=== PATIENT | male | born 1995 | race Two or more races ===

== ENCOUNTER 2020-11-14 16:35 | Inpatient (IN) | payer OTHER ==
[~2020-11-14] VITALS: Ht 172.7 cm; Wt 81.8 kg
[2020-11-14] MEDS ORDERED: IV NORMAL SALINE 1000ML BAG 1,000 ML IV ONE (17:00)
[2020-11-14] MEDS ORDERED: fentaNYL PF VIAL 100 MCG/2 ML VIAL IVP ONE ×2 (17:00→17:15)
[2020-11-14] MEDS ORDERED: ONDANSETRON PF 4 MG/2 ML VIAL. IVP ONE (17:00)
--- NOTE | 2020-11-14 17:00 | PHYS DOC ---
Past Medical History Past Medical History: No Pertinent History Past Surgical History: No Surgical History Smoking Status: Current Some Day Smoker Alcohol Use: Rarely General Adult EDM: Chief Complaint: TRAUMA ALERT HPI: HPI: Patient is a 25 year old who was brought here by EMS from a baseball field due to left leg injury. Patient said another player collided with him on the field, injured his left leg. Patient's hydraulic strainer operator placed a inflatable splint on his left leg, EMS was called to take him here for evaluation. EMS gave patient ketamine on route for pain control. Patient denies any other injury, no headache, no neck pain, no back pain, no hip pain, no abdominal pain, no upper extremity pain. Review of Systems: Review of Systems: Constitutional: Denies fever or chills. [] Eyes: Denies change in visual acuity. [] HENT: Denies nasal congestion or sore throat. [] Respiratory: Denies cough or shortness of breath. [] Cardiovascular: Denies chest pain or edema. [] GI: Denies abdominal pain, nausea, vomiting, bloody stools or diarrhea. [] : Denies dysuria. [] Musculoskeletal: Denies back pain , positive for left leg pain. Integument: Denies rash. [] Neurologic: Denies headache, focal weakness or sensory changes. [] Endocrine: Denies polyuria or polydipsia. [] Lymphatic: Denies swollen glands. [] Psychiatric: Denies depression or anxiety. [] Heart Score: C/O Chest Pain: N/A Risk Factors: Risk Factors: DM, Current or recent (<one month) smoker, HTN, HLP, family history of CAD, obesity. Risk Scores: Score 0 - 3: 2.5% MACE over next 6 weeks - Discharge Home Score 4 - 6: 20.3% MACE over next 6 weeks - Admit for Clinical Observation Score 7 - 10: 72.7% MACE over next 6 weeks - Early Invasive Strategies Current Medications: Current Medications Medications (Trade) Dose Ordered Sig/Tera Start Time Stop Time Status Last Admin Dose Admin Fentanyl Citrate (Fentanyl 2ml Vial) 50 mcg 1X ONCE 11/14/20 17:00 11/14/20 17:01 Ondansetron HCl (Zofran) 4 mg 1X ONCE 11/14/20 17:00 11/14/20 17:01 Sodium Chloride 1,000 ml @ 1,000 mls/hr 1X ONCE 11/14/20 17:00 11/14/20 17:59 Allergies: Allergies: Allergies Coded Allergies Type Severity Reaction Last Updated Verified No Known Drug Allergies 11/14/20 No Physical Exam: PE: Constitutional: Well developed, well nourished, no acute distress, non-toxic appearance. [] HENT: Normocephalic, atraumatic, bilateral external ears normal, oropharynx moist, no oral exudates, nose normal. [] Eyes: PERRLA, EOMI, conjunctiva normal, no discharge. [] Neck: Normal range of motion, no tenderness, supple, no stridor. [] Cardiovascular:Heart rate regular rhythm, no murmur [] Lungs & Thorax: Bilateral breath sounds clear to auscultation [] Abdomen: Bowel sounds normal, soft, no tenderness, no masses, no pulsatile masses. [] Skin: Warm, dry, no erythema, no rash. [] Back: No tenderness, no CVA tenderness. [] Extremities: Left leg tender to palpation with minimal swelling in the mid part of his left leg. There is no evidence of compartment syndrome, no open wound, there is strong dorsalis pedis pulse. Neurologic: Alert and oriented X 3, normal motor function, normal sensory function, no focal deficits noted. [] Psychologic: Affect normal, judgement normal, mood normal. [] Current Patient Data: Vital Signs: Vital Signs Date Time Temp Pulse Resp B/P (MAP) Pulse Ox O2 Delivery O2 Flow Rate FiO2 11/14/20 16:44 98.2 71 18 115/55 (75) 100 Room Air 98.2 EKG: EKG: [] Radiology/Procedures: Radiology/Procedures: [][facility] [address] [place] [address] IMAGING REPORT Signed PATIENT: KATHI TERESA ACCOUNT: [id number] : 1995 LOCATION: ER AGE: 25 SEX: M EXAM STATUS: REG ER ORD. PHYSICIAN: FRANCO LOWE DO REASON: left leg injured PROCEDURE: TIBIA FIBULA LEFT 2 views left tibia-fibula dated 11/14/2020. No comparison available. CLINICAL INDICATION: Pain after injury. FINDINGS: 2 views left tibia fibula show comminuted nondisplaced fracture of the distal one third shaft tibia. There is also 2 separate nondisplaced transverse fracture lines of the midshaft and distal one third shaft of fibula. No apparent abnormality at the knee joint. Impression: Fractures of the tibia and fibular shafts, not significantly displaced. Electronically signed by: Amilcar Ashton MD (11/14/2020 5:02 PM) [id number] DICTATED and SIGNED BY: AMILCAR ASHTON MD DATE: 11/14/20 [id number] Splinting Procedure: POSTERIOR LONG LEG WITH STIR UP Indication: LEFT TIB/FIB FRACTURE Splint was done by: PATRICE AND PHILLY Method: POSTERIOR LONG LEG WITH STIR UP. Material: ORTHOGLASS MATERIAL Post Splinting exam was done by this physician, capillary refill of the affected extremity was less than 2 seconds, no focal neurovascular deficit. No evidence of compartment syndrome. Complication : none, patient tolerated procedure well. Course & Med Decision Making: Course & Med Decision Making Pertinent Labs and Imaging studies reviewed. (See chart for details) Patient is a 25-year-old male who sustained a closed fracture tib-fib left leg. A posterior long-leg splint with stirrup was applied on left lower extremity by PATRICE and PHILLY. Patient was evaluated in the ED by the trauma surgeon Dr. Velasquez and the orthopedic surgeon Dr. Baker. Patient will be admitted to the hospitalist service Dr. Gramajo. Dr. Baker indicated that patient can be managed with splinting for now, no surgery needed at this time. Patient was still in a lot of pain, will admit him for pain control Dragon Disclaimer: Daniel Disclaimer: This electronic medical record was generated, in whole or in part, using a voice recognition dictation system. Departure Departure Impression: Primary Impression: Closed fracture of left tibia and fibula Disposition: ADMITTED INPT THIS HOSP Admitting Physician: SANAZ (Dr. Gramajo) Condition: STABLE FRANCO LOWE DO Nov 14, 2020 17:00
--- NOTE | 2020-11-14 17:04 | RAD ---
2 views left tibia-fibula dated 11/14/2020. No comparison available. CLINICAL INDICATION: Pain after injury. FINDINGS: 2 views left tibia fibula show comminuted nondisplaced fracture of the distal one third shaft tibia. There is also 2 separate nondisplaced transverse fracture lines of the midshaft and distal one third shaft of fibula. No apparent abnormality at the knee joint. Impression: Fractures of the tibia and fibular shafts, not significantly displaced. Electronically signed by: Amilcar Ashton MD (11/14/2020 5:02 PM) [id number]
[2020-11-14 17:05] LABS: BASO % 0 % (0-3); EOS % 0 % (0-3); HEMATOCRIT 41.4 % (39.0-53.0); HEMOGLOBIN 14.5 g/dL (13.0-17.5); LYMPH % 10 % (24-48); MEAN CORPUSCULAR HEMOGLOBIN 30 pg (25-35); MEAN CORPUSCULAR HGB CONC 35 g/dL (31-37); MEAN CORPUSCULAR VOLUME 87 fL (79-100); MONO # 0.6 x10^3/uL (0.0-1.1); MONO % 6 % (0-9); NEUT # 8.7 x10^3/uL (1.8-7.7); NEUT % 84 % (31-73); PLATELET COUNT 277 x10^3/uL (140-400); RED BLOOD COUNT 4.77 x10^6/uL (4.30-5.70); RED CELL DISTRIBUTION WIDTH 12.9 % (11.5-14.5); WHITE BLOOD COUNT 10.4 x10^3/uL (4.0-11.0)
[2020-11-14] MEDS ORDERED: fentaNYL PF VIAL 100 MCG/2 ML VIAL IV PRN (17:15)
[2020-11-14] MEDS ORDERED: IV NORMAL SALINE 1000ML BAG 1,000 ML IV SCH (17:15)
[2020-11-14] MEDS ORDERED: ONDANSETRON PF 4 MG/2 ML VIAL. IV PRN (17:15)
[2020-11-14 17:16] LABS: CALCIUM 9.3 mg/dL (8.5-10.1); CREATININE 1.1 mg/dL (0.7-1.3); POTASSIUM 4.4 mmol/L (3.5-5.1)
[2020-11-14 17:22] LABS: ALBUMIN 4.1 g/dL (3.4-5.0); ALBUMIN/GLOBULIN RATIO 1.2 (1.0-1.7); TOTAL BILIRUBIN 0.9 mg/dL (0.2-1.0); TOTAL PROTEIN 7.4 g/dL (6.4-8.2)
[2020-11-14 18:15] VITALS: BP 148/78
[2020-11-14] MEDS ORDERED: MORPHINE SULFATE 2 MG/ML VIAL. IV PRN (19:00)
--- NOTE | 2020-11-14 19:07 | NUR ---
Patient arrived around 1810 from the ED. LLE is covered in a splint and agustina wrap. Pain rated at an 8 upon admission and patient is alert but loopy from his pain medications. 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 The couch and assistant hvac mechanic couch are at bedside. Patient is from [place] and his primary language is [place]ibian but he speaks Canadian very well. IV in right AC not working properly so it was discontinued. IV infusing properly in his left AC. Oncoming shift notified and will continue to monitor patient.
--- NOTE | 2020-11-14 19:29 | PDOC1 ---
History and Physical Date of Service: DOS: DATE: 11/14/20 TIME: 19:27 Chief Complaint: Chief Complain: Trauma to left lower extremity History of Present Illness: HPI: 25 year old who was brought here by EMS from a baseball field due to left leg injury. Patient said another player collided with him on the field, injured his left leg. Patient's salesforce trainer placed a inflatable splint on his left leg, EMS was called to take him here for evaluation. EMS gave patient ketamine on route for pain control. Patient denies any other injury, no headache, no neck pain, no back pain, no hip pain, no abdominal pain, no upper extremity pain. Past Medical/Surgical History: PMH/PSH: Past Medical History: No Pertinent History Past Surgical History: No Surgical History Allergies: Allergies: Coded Allergies: No Known Drug Allergies (Unverified , 11/14/20) Family History: Family History: Reviewed with no relevant findings Social History: Social History: Smoking Status: Current Some Day Smoker Alcohol Use: Rarely Current Medications: Current Medications Current Medications Fentanyl Citrate (Fentanyl 2ml Vial) 50 mcg 1X ONCE IVP Last administered on 11/14/20at 16:57; Start 11/14/20 at 17:00; Stop 11/14/20 at 17:01; Status DC Ondansetron HCl (Zofran) 4 mg 1X ONCE IVP Last administered on 11/14/20at 16:57; Start 11/14/20 at 17:00; Stop 11/14/20 at 17:01; Status DC Sodium Chloride 1,000 ml @ 1,000 mls/hr 1X ONCE IV Last administered on 11/14/20at 16:56; Start 11/14/20 at 17:00; Stop 11/14/20 at 17:59; Status DC Ondansetron HCl (Zofran) 4 mg PRN Q8HRS PRN IV NAUSEA/VOMITING; Start 11/14/20 at 17:15; Stop 11/15/20 at 17:14 Fentanyl Citrate (Fentanyl 2ml Vial) 50 mcg PRN Q1HR PRN IV PAIN Last administered on 11/14/20at 18:28; Start 11/14/20 at 17:15; Stop 11/14/20 at 19:01; Status DC Sodium Chloride 1,000 ml @ 100 mls/hr Q10H IV ; Start 11/14/20 at 17:15 Fentanyl Citrate (Fentanyl 2ml Vial) 50 mcg 1X ONCE IVP Last administered on 11/14/20at 17:15; Start 11/14/20 at 17:15; Stop 11/14/20 at 17:16; Status DC Morphine Sulfate (Morphine Sulfate) 1 mg PRN Q2HR PRN IV PAIN; Start 11/14/20 at 19:00 ROS: Review of Systems Review of System REVIEW OF SYSTEMS: GENERAL: Denies weakness SKIN: No bruising, hair changes or rashes. EYES: No blurred, double or loss of vision. NOSE AND THROAT: No history of nosebleeds, hoarseness or sore throat. HEART: No history of palpitations, chest pain or shortness of breath on exertion. LUNGS: Denies cough, hemoptysis, wheezing or shortness of breath. GASTROINTESTINAL: Denies changes in appetite, nausea, vomiting, diarrhea or constipation. GENITOURINARY: No history of frequency, urgency, hesitancy or nocturia. NEUROLOGIC: Denies history of numbness, tingling, or tremor. PSYCHIATRIC: No history of panic, anxiety or depression. ENDOCRINE: No history of heat or cold intolerance, polyuria or polydipsia. EXTREMITIES: Denies joint pain, pain on walking or stiffness. Physical Exam: Vital Signs: Vital Signs Date Time Temp Pulse Resp B/P (MAP) Pulse Ox O2 Delivery O2 Flow Rate FiO2 11/14/20 18:58 100 Room Air 11/14/20 18:15 98.6 78 20 148/78 (101) 98.6 Physcial Exam: GEN: No apparent distress. Alert and oriented HEENT: Normal cephalic, atraumatic, external auditory canals are patent EYES: Extraocular muscles are intact, pupil are equally round and reactive to light and accommodation MUSCULOSKELETAL: Well developed , well nourished, good range of motion ENDOCRINE: No thyromegaly was palpated LYMPHATICS: No cervical chain or axillary nodes were noted HEMATOPOIETIC: No bruising NECK: Supple, no JVD, no thyromegaly was noted LUNGS: Clear to auscultation in all lung melton without rhonchi or wheezing HEART: RRR, S!, S2 present. Peripheral pulses intact, no obvious murmurs noted ABDOMEN: Soft, nontender. Positive bowel sounds, no organomegaly, normal bowel sounds EXTREMITIES: Without clubbing, cyanosis, or edema. Pedal pulses intact. Negative Homans sign NEUROLOGIC: Normal speech and tone. A&O x 3, moves all extremities, no obvious focal deficits PSYCHIATRIC: Normal affect, normal mood. Stable SKIN: No ulcerations or rashes, good skin turgor, no jaundice VASCULAR: Good capillary refill, neurovascular bundle appears to be intact Labs: Labs: Laboratory Tests Test 11/14/20 16:45 11/14/20 16:55 SARS-CoV-2 Antigen (Rapid) Negative (NEGATIVE) White Blood Count 10.4 x10^3/uL (4.0-11.0) Red Blood Count 4.77 x10^6/uL (4.30-5.70) Hemoglobin 14.5 g/dL (13.0-17.5) Hematocrit 41.4 % (39.0-53.0) Mean Corpuscular Volume 87 fL (79-100) Mean Corpuscular Hemoglobin 30 pg (25-35) Mean Corpuscular Hemoglobin Concent 35 g/dL (31-37) Red Cell Distribution Width 12.9 % (11.5-14.5) Platelet Count 277 x10^3/uL (140-400) Neutrophils (%) (Auto) 84 % (31-73) Lymphocytes (%) (Auto) 10 % (24-48) Monocytes (%) (Auto) 6 % (0-9) Eosinophils (%) (Auto) 0 % (0-3) Basophils (%) (Auto) 0 % (0-3) Neutrophils # (Auto) 8.7 x10^3/uL (1.8-7.7) Lymphocytes # (Auto) 1.0 x10^3/uL (1.0-4.8) Monocytes # (Auto) 0.6 x10^3/uL (0.0-1.1) Eosinophils # (Auto) 0.0 x10^3/uL (0.0-0.7) Basophils # (Auto) 0.0 x10^3/uL (0.0-0.2) Sodium Level 138 mmol/L (136-145) Potassium Level 4.4 mmol/L (3.5-5.1) Chloride Level 105 mmol/L (98-107) Carbon Dioxide Level 22 mmol/L (21-32) Anion Gap 11 (6-14) Blood Urea Nitrogen 16 mg/dL (8-26) Creatinine 1.1 mg/dL (0.7-1.3) Estimated GFR (Cockcroft-Gault) 83.0 BUN/Creatinine Ratio 15 (6-20) Glucose Level 99 mg/dL (70-99) Calcium Level 9.3 mg/dL (8.5-10.1) Total Bilirubin 0.9 mg/dL (0.2-1.0) Aspartate Amino Transf (AST/SGOT) 26 U/L (15-37) Alanine Aminotransferase (ALT/SGPT) 32 U/L (16-63) Alkaline Phosphatase 96 U/L (46-116) Total Protein 7.4 g/dL (6.4-8.2) Albumin 4.1 g/dL (3.4-5.0) Albumin/Globulin Ratio 1.2 (1.0-1.7) Laboratory Tests Test 11/14/20 16:45 11/14/20 16:55 SARS-CoV-2 Antigen (Rapid) Negative (NEGATIVE) White Blood Count 10.4 x10^3/uL (4.0-11.0) Red Blood Count 4.77 x10^6/uL (4.30-5.70) Hemoglobin 14.5 g/dL (13.0-17.5) Hematocrit 41.4 % (39.0-53.0) Mean Corpuscular Volume 87 fL (79-100) Mean Corpuscular Hemoglobin 30 pg (25-35) Mean Corpuscular Hemoglobin Concent 35 g/dL (31-37) Red Cell Distribution Width 12.9 % (11.5-14.5) Platelet Count 277 x10^3/uL (140-400) Neutrophils (%) (Auto) 84 % (31-73) Lymphocytes (%) (Auto) 10 % (24-48) Monocytes (%) (Auto) 6 % (0-9) Eosinophils (%) (Auto) 0 % (0-3) Basophils (%) (Auto) 0 % (0-3) Neutrophils # (Auto) 8.7 x10^3/uL (1.8-7.7) Lymphocytes # (Auto) 1.0 x10^3/uL (1.0-4.8) Monocytes # (Auto) 0.6 x10^3/uL (0.0-1.1) Eosinophils # (Auto) 0.0 x10^3/uL (0.0-0.7) Basophils # (Auto) 0.0 x10^3/uL (0.0-0.2) Sodium Level 138 mmol/L (136-145) Potassium Level 4.4 mmol/L (3.5-5.1) Chloride Level 105 mmol/L (98-107) Carbon Dioxide Level 22 mmol/L (21-32) Anion Gap 11 (6-14) Blood Urea Nitrogen 16 mg/dL (8-26) Creatinine 1.1 mg/dL (0.7-1.3) Estimated GFR (Cockcroft-Gault) 83.0 BUN/Creatinine Ratio 15 (6-20) Glucose Level 99 mg/dL (70-99) Calcium Level 9.3 mg/dL (8.5-10.1) Total Bilirubin 0.9 mg/dL (0.2-1.0) Aspartate Amino Transf (AST/SGOT) 26 U/L (15-37) Alanine Aminotransferase (ALT/SGPT) 32 U/L (16-63) Alkaline Phosphatase 96 U/L (46-116) Total Protein 7.4 g/dL (6.4-8.2) Albumin 4.1 g/dL (3.4-5.0) Albumin/Globulin Ratio 1.2 (1.0-1.7) Images: Images Left tib-fib x-ray Impression: Fractures of the tibia and fibular shafts, not significantly displaced. Assessment/Plan Assessment/Plan Acute left tib fib fracture Admit to medicine for further management Ortho consult PT OT IV pain control Lovenox for DVT prophylaxis Regular diet Full code Discussed with RN and SW Disposition pending Ortho evaluation Surrogate decision maker is the parents Justifications for Admission Other Justification GARRETT PAULINO MD Nov 14, 2020 19:29
[2020-11-14] MEDS ORDERED: ONDANSETRON PF 4 MG/2 ML VIAL. IVP PRN (19:30)
[2020-11-14] MEDS ORDERED: SENNOSIDES 8.6 MG TABLET PO PRN (19:30)
[2020-11-14] MEDS ORDERED: DEXTROSE 50% 25 GM / 50ML DISP.SYRIN. IV PRN (19:30)
[2020-11-14] MEDS ORDERED: ACETAMINOPHEN 325 MG TABLET. PO PRN (19:30)
[2020-11-14] MEDS ORDERED: DOCUSATE SODIUM 100 MG CAPSULE. PO PRN (19:30)
--- NOTE | 2020-11-14 20:30 | PDOC2 ---
CONSULT Date of Consult Date of Consult DATE: 11/14/20 TIME: 20:26 Reason for Consult Reason for Consult: LLE fracture Referring Physician Referring Physician: Dr. Gramajo Identification/Chief Complaint Chief Complaint LLE pain Source Source: Chart review, Patient History of Present Illness Reason for Visit: 25 yo M playing baseball and was run into by another player. C/o pain in LLE, but no other c/o. Past Medical History Cardiovascular: No pertinent hx Past Surgical History Past Surgical History: No pertinent history Family History Family History: No Significant Social History <1 pack per day Current Problem List Problem List Problems Medical Problems: (1) Closed fracture of left tibia and fibula Status: Acute Current Medications Current Medications Current Medications Fentanyl Citrate (Fentanyl 2ml Vial) 50 mcg 1X ONCE IVP Last administered on 11/14/20at 16:57; Start 11/14/20 at 17:00; Stop 11/14/20 at 17:01; Status DC Ondansetron HCl (Zofran) 4 mg 1X ONCE IVP Last administered on 11/14/20at 16:57; Start 11/14/20 at 17:00; Stop 11/14/20 at 17:01; Status DC Sodium Chloride 1,000 ml @ 1,000 mls/hr 1X ONCE IV Last administered on 11/14/20at 16:56; Start 11/14/20 at 17:00; Stop 11/14/20 at 17:59; Status DC Ondansetron HCl (Zofran) 4 mg PRN Q8HRS PRN IV NAUSEA/VOMITING; Start 11/14/20 at 17:15; Stop 11/15/20 at 17:14 Fentanyl Citrate (Fentanyl 2ml Vial) 50 mcg PRN Q1HR PRN IV PAIN Last administered on 11/14/20at 18:28; Start 11/14/20 at 17:15; Stop 11/14/20 at 19:01; Status DC Sodium Chloride 1,000 ml @ 100 mls/hr Q10H IV ; Start 11/14/20 at 17:15; Stop 11/14/20 at 19:40; Status DC Fentanyl Citrate (Fentanyl 2ml Vial) 50 mcg 1X ONCE IVP Last administered on 11/14/20at 17:15; Start 11/14/20 at 17:15; Stop 11/14/20 at 17:16; Status DC Morphine Sulfate (Morphine Sulfate) 1 mg PRN Q2HR PRN IV PAIN; Start 11/14/20 at 19:00; Stop 11/14/20 at 19:41; Status DC Sennosides (Senna) 17.2 mg PRN BID PRN PO CONSTIPATION; Start 11/14/20 at 19:30 Docusate Sodium (Colace) 100 mg PRN DAILY PRN PO HARD STOOLS; Start 11/14/20 at 19:30 Ondansetron HCl (Zofran) 4 mg PRN Q6HRS PRN IVP NAUSEA/VOMITING; Start 11/14/20 at 19:30 Dextrose (Dextrose 50%-Water Syringe) 12.5 gm PRN Q15MIN PRN IV SEE COMMENTS; Start 11/14/20 at 19:30 Sodium Chloride 1,000 ml @ 100 mls/hr Q10H IV ; Start 11/14/20 at 19:30 Acetaminophen (Tylenol) 650 mg PRN Q4HRS PRN PO TEMP OVER 100.4F OR MILD PAIN; Start 11/14/20 at 19:30 Enoxaparin Sodium (Lovenox 40mg Syringe) 40 mg Q24H SQ ; Start 11/15/20 at 09:00 Morphine Sulfate (Morphine Sulfate) 1 mg PRN Q1HR PRN IV PAIN MILD; Start 11/14/20 at 19:30 Morphine Sulfate (Morphine Sulfate) 2 mg PRN Q2HR PRN IV SEVERE PAIN 7-10; Start 11/14/20 at 04:00; Stop 11/15/20 at 03:59 Allergies Allergies: Coded Allergies: No Known Drug Allergies (Unverified , 11/14/20) ROS Musculoskeletal: Yes Pain In: (LLE) Physical Exam General: Alert, Oriented X3, Cooperative, moderate distress HEENT: Atraumatic, EOMI Lungs: Normal air movement Abdomen: Soft, No tenderness Extremities: No clubbing, No cyanosis, Other (deformity of LLE) Skin: No rashes, No breakdown Neuro: Normal speech, Sensation intact Psych/Mental Status: Mental status NL, Mood NL Vitals VITALS Vital Signs Date Time Temp Pulse Resp B/P (MAP) Pulse Ox O2 Delivery O2 Flow Rate FiO2 11/14/20 18:58 100 Room Air 11/14/20 18:15 98.6 78 20 148/78 (101) 98.6 Labs Labs Laboratory Tests Test 3/9/21 16:45 11/14/20 16:55 SARS-CoV-2 Antigen (Rapid) Negative (NEGATIVE) White Blood Count 10.4 x10^3/uL (4.0-11.0) Red Blood Count 4.77 x10^6/uL (4.30-5.70) Hemoglobin 14.5 g/dL (13.0-17.5) Hematocrit 41.4 % (39.0-53.0) Mean Corpuscular Volume 87 fL (79-100) Mean Corpuscular Hemoglobin 30 pg (25-35) Mean Corpuscular Hemoglobin Concent 35 g/dL (31-37) Red Cell Distribution Width 12.9 % (11.5-14.5) Platelet Count 277 x10^3/uL (140-400) Neutrophils (%) (Auto) 84 % (31-73) Lymphocytes (%) (Auto) 10 % (24-48) Monocytes (%) (Auto) 6 % (0-9) Eosinophils (%) (Auto) 0 % (0-3) Basophils (%) (Auto) 0 % (0-3) Neutrophils # (Auto) 8.7 x10^3/uL (1.8-7.7) Lymphocytes # (Auto) 1.0 x10^3/uL (1.0-4.8) Monocytes # (Auto) 0.6 x10^3/uL (0.0-1.1) Eosinophils # (Auto) 0.0 x10^3/uL (0.0-0.7) Basophils # (Auto) 0.0 x10^3/uL (0.0-0.2) Sodium Level 138 mmol/L (136-145) Potassium Level 4.4 mmol/L (3.5-5.1) Chloride Level 105 mmol/L (98-107) Carbon Dioxide Level 22 mmol/L (21-32) Anion Gap 11 (6-14) Blood Urea Nitrogen 16 mg/dL (8-26) Creatinine 1.1 mg/dL (0.7-1.3) Estimated GFR (Cockcroft-Gault) 83.0 BUN/Creatinine Ratio 15 (6-20) Glucose Level 99 mg/dL (70-99) Calcium Level 9.3 mg/dL (8.5-10.1) Total Bilirubin 0.9 mg/dL (0.2-1.0) Aspartate Amino Transf (AST/SGOT) 26 U/L (15-37) Alanine Aminotransferase (ALT/SGPT) 32 U/L (16-63) Alkaline Phosphatase 96 U/L (46-116) Total Protein 7.4 g/dL (6.4-8.2) Albumin 4.1 g/dL (3.4-5.0) Albumin/Globulin Ratio 1.2 (1.0-1.7) Laboratory Tests Test 11/14/20 16:45 11/14/20 16:55 SARS-CoV-2 Antigen (Rapid) Negative (NEGATIVE) White Blood Count 10.4 x10^3/uL (4.0-11.0) Red Blood Count 4.77 x10^6/uL (4.30-5.70) Hemoglobin 14.5 g/dL (13.0-17.5) Hematocrit 41.4 % (39.0-53.0) Mean Corpuscular Volume 87 fL (79-100) Mean Corpuscular Hemoglobin 30 pg (25-35) Mean Corpuscular Hemoglobin Concent 35 g/dL (31-37) Red Cell Distribution Width 12.9 % (11.5-14.5) Platelet Count 277 x10^3/uL (140-400) Neutrophils (%) (Auto) 84 % (31-73) Lymphocytes (%) (Auto) 10 % (24-48) Monocytes (%) (Auto) 6 % (0-9) Eosinophils (%) (Auto) 0 % (0-3) Basophils (%) (Auto) 0 % (0-3) Neutrophils # (Auto) 8.7 x10^3/uL (1.8-7.7) Lymphocytes # (Auto) 1.0 x10^3/uL (1.0-4.8) Monocytes # (Auto) 0.6 x10^3/uL (0.0-1.1) Eosinophils # (Auto) 0.0 x10^3/uL (0.0-0.7) Basophils # (Auto) 0.0 x10^3/uL (0.0-0.2) Sodium Level 138 mmol/L (136-145) Potassium Level 4.4 mmol/L (3.5-5.1) Chloride Level 105 mmol/L (98-107) Carbon Dioxide Level 22 mmol/L (21-32) Anion Gap 11 (6-14) Blood Urea Nitrogen 16 mg/dL (8-26) Creatinine 1.1 mg/dL (0.7-1.3) Estimated GFR (Cockcroft-Gault) 83.0 BUN/Creatinine Ratio 15 (6-20) Glucose Level 99 mg/dL (70-99) Calcium Level 9.3 mg/dL (8.5-10.1) Total Bilirubin 0.9 mg/dL (0.2-1.0) Aspartate Amino Transf (AST/SGOT) 26 U/L (15-37) Alanine Aminotransferase (ALT/SGPT) 32 U/L (16-63) Alkaline Phosphatase 96 U/L (46-116) Total Protein 7.4 g/dL (6.4-8.2) Albumin 4.1 g/dL (3.4-5.0) Albumin/Globulin Ratio 1.2 (1.0-1.7) Images Images XR c/w tib fib fracture Assessment/Plan Assessment/Plan LLE fracture defer to ortho. no trauma surgical recommendations, given isolated LLE injury. Thanks for consult! LUIS NAVARRO MD Nov 14, 2020 20:30
[2020-11-14] MEDS: IV NORMAL SALINE 1000ML BAG 1,000 ML IV SCH (20:32)
[2020-11-14] MEDS: MORPHINE SULFATE 4 MG/ML VIAL. IV PRN (20:33)
[2020-11-14 23:00] VITALS: BP 110/48
[2020-11-15] MEDS: MORPHINE SULFATE 4 MG/ML VIAL. IV PRN (01:01)
[2020-11-15] MEDS: MORPHINE SULFATE 2 MG/ML VIAL. IV PRN ×3 (04:16→14:30)
[2020-11-15] MEDS: IV NORMAL SALINE 1000ML BAG 1,000 ML IV SCH ×2 (04:37→15:30)
[2020-11-15 04:49] LABS: BASO % 0 % (0-3); EOS # 0.1 x10^3/uL (0.0-0.7); EOS % 1 % (0-3); HEMATOCRIT 37.9 % (39.0-53.0); HEMOGLOBIN 12.8 g/dL (13.0-17.5); LYMPH # 1.9 x10^3/uL (1.0-4.8); LYMPH % 23 % (24-48); MEAN CORPUSCULAR HEMOGLOBIN 30 pg (25-35); MEAN CORPUSCULAR HGB CONC 34 g/dL (31-37); MEAN CORPUSCULAR VOLUME 89 fL (79-100); MONO # 0.9 x10^3/uL (0.0-1.1); MONO % 12 % (0-9); NEUT # 5.3 x10^3/uL (1.8-7.7); NEUT % 64 % (31-73); PLATELET COUNT 211 x10^3/uL (140-400); RED BLOOD COUNT 4.24 x10^6/uL (4.30-5.70); RED CELL DISTRIBUTION WIDTH 13.2 % (11.5-14.5); WHITE BLOOD COUNT 8.2 x10^3/uL (4.0-11.0)
[2020-11-15 04:58] LABS: CALCIUM 8.3 mg/dL (8.5-10.1); GFR 92.6; MAGNESIUM 1.8 mg/dL (1.8-2.4); PHOSPHORUS 3.8 mg/dL (2.6-4.7); POTASSIUM 3.9 mmol/L (3.5-5.1)
[2020-11-15 06:04] VITALS: BP 116/65
--- NOTE | 2020-11-15 07:21 | DISCH ---
DISCHARGE INSTRUCTIONS Condition on Discharge Condition on Discharge: Stable Activity After Discharge Activity Instructions for Disc: Activity as tolerated Lifting Instructions after Dis: No pulling or pushing Driving Instructions after Dis: Do not drive today Weight Bearing Status after Di: Other, see below (Follow with orthopedic recommendations) Diet after Discharge Diet after Discharge: Regular Follow-Up Follow up with: PCP within 2 weeks of discharge Follow Up With: Orthopedic surgery as scheduled GARRETT PAULINO MD Nov 15, 2020 07:21
--- NOTE | 2020-11-15 07:23 | NUR ---
Pain being managed by Morphine. Will need po meds for discharge. Complaining of left hand pain/swelling.
--- NOTE | 2020-11-15 07:48 | CONS ---
DATE OF CONSULTATION: 11/14/2020 EMERGENCY DEPARTMENT CONSULTATION CHIEF COMPLAINT: Left tibia fracture. REQUESTING PHYSICIAN: Dr. Moy. REASON FOR CONSULTATION: The patient is a 25-year-old male who was playing baseball at the [facility] and he collided with another player apparently going one leg hitting the players other leg, had immediate onset of severe pain, inability to bear weight and was brought in by EMS after being splinted on the field and he was noted to have deformity in the tibia area. PAST MEDICAL HISTORY: Denies any past medical or surgical history. FAMILY HISTORY: No family history. ALLERGIES: He has no known drug allergies. MEDICATIONS: No medications aside from what was given to him en route some ketamine and fentanyl in the Emergency Department. SOCIAL HISTORY: He denies drug use. He does occasionally smoke cigarettes and rare social use of alcohol. REVIEW OF SYSTEMS: Denies any loss of consciousness, focal weakness, numbness, tingling, chest pain, shortness of breath, visual changes and has severe pain due to his left leg injury and is currently on a stretcher in the Emergency Department. Otherwise, negative 14-point review of systems. PHYSICAL EXAMINATION: GENERAL: He is a pleasant, cooperative 25-year-old male. He is in moderate to severe distress, moderately at rest. Really severe with any movement and states that he is very uncomfortable and has to be repositioned from the way he is lying after having had x-rays. HEENT: There appears to be no evidence of head trauma, neck or back pain. MUSCULOSKELETAL: He has normal shoulder, elbow and wrist motion and stability bilaterally with no swelling or instability. Examination of the lower extremities reveals an obvious deformity over the anterior mid tibia where he has large swelling over the anterior medial aspect, very tender on any palpation or attempted movement. No gross instability to the left knee or ankle. He can barely wiggle his toes, but has a lot of pain. His compartments are soft. Distal pulses, sensation, and capillary refill are all intact. He has normal examination of the contralateral knee, ankle and equal leg lengths, normal alignment, stability, bilateral hips. No tenderness over the trochanteric bursa or over the low back. IMAGING: X-rays show a nondisplaced fracture of the midshaft of the tibia and fibula. TREATMENT PLAN: I went over with him that my plan would be for nonoperative management of the leg as his fracture at present is nondisplaced and while any type of surgical stabilization would stabilize the fracture, but would not make the healing any faster. I likewise noted that placing a cast on him at this point would risk the possibility of it being too tight due to later swelling and I would prefer to have him splinted initially with strict nonweightbearing and noted that he would need a long leg cast for closed treatment of this once some of his swelling resolves adequately. HENRIETTA HOBSON MD DR: EDISON/shaylee JOB#: [id number] / [id number]
[2020-11-15] MEDS: ENOXAPARIN 40 MG/0.4 ML SYRINGE. SQ SCH (08:59)
--- NOTE | 2020-11-15 09:00 | NUR ---
OT attempted to get out of bed. they were unsuccessful. medicated with morphine will attempt 30 minutes later. iv fluids dcd. tolerating fluids well.
--- NOTE | 2020-11-15 10:30 | NUR ---
2nd attempt at getting was successful but an assist of 2 people. only able to transfer from the bed to the recliner. complains of left hand pain. splint to the left leg remans intact. remains nwb. PT/OT do not think he should go home. Dr. Gramajo notified.
[2020-11-15] MEDS ORDERED: IBUPROFEN 200 MG TABLET. PO PRN (11:00)
[2020-11-15 11:06] VITALS: BP 123/65
[2020-11-15] MEDS: HYDROcodone/APAP 5/325MG 1 TAB TABLET PO PRN ×2 (12:57→23:23)
--- NOTE | 2020-11-15 13:39 | RAD ---
EXAM: Left wrist, 3 views. HISTORY: Fall. COMPARISON: None. FINDINGS: 3 views of the left wrist are obtained. There is no acute fracture, dislocation or subluxat ion. There is healed fracture of the fifth metacarpal. IMPRESSION: No acute osseous finding. Electronically signed by: Preeti Segura MD (11/15/2020 1:37 PM) [id number]
--- NOTE | 2020-11-15 15:00 | NUR ---
PT/OT here to work with Farhan. Medicated for next session. tolerated getting up but pain remains elevated. PT recommends therapy-not safe to go home. asking about a wheelchair, platform waker. referred to process planner. up in recliner. does not want the bed. "too hard to get out"
[2020-11-15 15:02] VITALS: BP 114/62
[2020-11-15 18:18] VITALS: BP 114/61
[2020-11-15 22:31] VITALS: BP 120/63
[2020-11-16] MEDS: IV NORMAL SALINE 1000ML BAG 1,000 ML IV SCH ×3 (01:30→21:30)
[2020-11-16 02:58] VITALS: BP 125/60
[2020-11-16 06:26] VITALS: BP 117/63
[2020-11-16] MEDS: oxyCODONE/APAP 7.5/325 1 TAB TABLET PO PRN ×4 (07:54→22:38)
[2020-11-16] MEDS: ENOXAPARIN 40 MG/0.4 ML SYRINGE. SQ SCH (07:55)
--- NOTE | 2020-11-16 10:31 | RAD ---
EXAM: Pelvis and left hip, 3 views. HISTORY: Pain. COMPARISON: None. FINDINGS: A frontal view of the pelvis and 2 views of the left hip are obtained. There is no fracture , dislocation or subluxation. IMPRESSION: No acute osseous finding. Electronically signed by: Preeti Segura MD (11/16/2020 10:29 AM) [id number]
--- NOTE | 2020-11-16 11:48 | PDOC ---
PROGRESS NOTES Date of Service DATE: 11/16/20 TIME: 11:43 Subjective Subjective Problems overnight: Left wrist is sore but improving. He notices a significant amount of pain in the left hip Objective Vital Signs Vital Signs Date Time Temp Pulse Resp B/P (MAP) Pulse Ox O2 Delivery O2 Flow Rate FiO2 11/16/20 09:00 11/16/20 08:54 18 Room Air 11/16/20 07:54 98 11/16/20 06:26 97.8 83 97.8 Physical Exam Left hip is tender on palpation over the trochanteric bursa area not as much with weightbearing through an extended extremity or gentle motion, distal neurovascular status intact Labs Laboratory Tests Test 11/14/20 16:45 11/14/20 16:55 11/15/20 03:47 Coronavirus (PCR) Not detected (Not Detected) SARS-CoV-2 Antigen (Rapid) Negative (NEGATIVE) White Blood Count 10.4 x10^3/uL (4.0-11.0) 8.2 x10^3/uL (4.0-11.0) Red Blood Count 4.77 x10^6/uL (4.30-5.70) 4.24 x10^6/uL (4.30-5.70) Hemoglobin 14.5 g/dL (13.0-17.5) 12.8 g/dL (13.0-17.5) Hematocrit 41.4 % (39.0-53.0) 37.9 % (39.0-53.0) Mean Corpuscular Volume 87 fL (79-100) 89 fL (79-100) Mean Corpuscular Hemoglobin 30 pg (25-35) 30 pg (25-35) Mean Corpuscular Hemoglobin Concent 35 g/dL (31-37) 34 g/dL (31-37) Red Cell Distribution Width 12.9 % (11.5-14.5) 13.2 % (11.5-14.5) Platelet Count 277 x10^3/uL (140-400) 211 x10^3/uL (140-400) Neutrophils (%) (Auto) 84 % (31-73) 64 % (31-73) Lymphocytes (%) (Auto) 10 % (24-48) 23 % (24-48) Monocytes (%) (Auto) 6 % (0-9) 12 % (0-9) Eosinophils (%) (Auto) 0 % (0-3) 1 % (0-3) Basophils (%) (Auto) 0 % (0-3) 0 % (0-3) Neutrophils # (Auto) 8.7 x10^3/uL (1.8-7.7) 5.3 x10^3/uL (1.8-7.7) Lymphocytes # (Auto) 1.0 x10^3/uL (1.0-4.8) 1.9 x10^3/uL (1.0-4.8) Monocytes # (Auto) 0.6 x10^3/uL (0.0-1.1) 0.9 x10^3/uL (0.0-1.1) Eosinophils # (Auto) 0.0 x10^3/uL (0.0-0.7) 0.1 x10^3/uL (0.0-0.7) Basophils # (Auto) 0.0 x10^3/uL (0.0-0.2) 0.0 x10^3/uL (0.0-0.2) Sodium Level 138 mmol/L (136-145) 137 mmol/L (136-145) Potassium Level 4.4 mmol/L (3.5-5.1) 3.9 mmol/L (3.5-5.1) Chloride Level 105 mmol/L (98-107) 104 mmol/L (98-107) Carbon Dioxide Level 22 mmol/L (21-32) 28 mmol/L (21-32) Anion Gap 11 (6-14) 5 (6-14) Blood Urea Nitrogen 16 mg/dL (8-26) 13 mg/dL (8-26) Creatinine 1.1 mg/dL (0.7-1.3) 1.0 mg/dL (0.7-1.3) Estimated GFR (Cockcroft-Gault) 83.0 92.6 BUN/Creatinine Ratio 15 (6-20) Glucose Level 99 mg/dL (70-99) 106 mg/dL (70-99) Calcium Level 9.3 mg/dL (8.5-10.1) 8.3 mg/dL (8.5-10.1) Total Bilirubin 0.9 mg/dL (0.2-1.0) Aspartate Amino Transf (AST/SGOT) 26 U/L (15-37) Alanine Aminotransferase (ALT/SGPT) 32 U/L (16-63) Alkaline Phosphatase 96 U/L (46-116) Total Protein 7.4 g/dL (6.4-8.2) Albumin 4.1 g/dL (3.4-5.0) Albumin/Globulin Ratio 1.2 (1.0-1.7) Phosphorus Level 3.8 mg/dL (2.6-4.7) Magnesium Level 1.8 mg/dL (1.8-2.4) Imaging Left wrist x-rays show no evidence of fracture instability or bony abnormality Assessment Assessment Nonoperative treatment of nonoperative treatment left tibia fracture and left wrist strain Plan Plan of Care Left platform walker is working well with wrist strain, obtaining left hip x- rays due to new report of pain Continue mobilize nonweightbearing left lower extremity, pain control and medication change to oral Percocet Justicifation of Admission Dx: Justifications for Admission: Justification of Admission Dx: N/A HENRIETTA HOBSON MD Nov 16, 2020 11:48
[2020-11-16 18:00] VITALS: BP 130/78
[2020-11-16 22:47] VITALS: BP 131/65
[2020-11-17 02:37] VITALS: BP 129/59
[2020-11-17] MEDS: oxyCODONE/APAP 7.5/325 1 TAB TABLET PO PRN ×3 (04:18→16:03)
[2020-11-17] MEDS: IV NORMAL SALINE 1000ML BAG 1,000 ML IV SCH (05:32)
[2020-11-17 06:00] VITALS: BP 149/83
[2020-11-17] MEDS: ENOXAPARIN 40 MG/0.4 ML SYRINGE. SQ SCH (09:29)
--- NOTE | 2020-11-17 13:00 | NUR ---
Up in chair with ice pack on left leg. Talking on phone. Offered pain med at this time. Refused. Cont. monitor.
--- NOTE | 2020-11-17 15:44 | PDOC3 ---
[facility]-Discharge Summary Date of Admission: Date of Admission: Nov 14, 2020 Date of Discharge: Date of Discharge: Nov 17, 2020 Discharge Diagnosis: Discharge Diagnosis: Acute left tib fib fracture Acute traumatic pain Hospital Course: Hospital Course: 25 year old who was brought here by EMS from a baseball field due to left leg injury. Patient said another player collided with him on the field, injured his left leg. Patient's link trainer operator placed a inflatable splint on his left le g, EMS was called to take him here for evaluation. EMS gave patient ketamine on route for pain control. Patient denies any other injury, no headache, no neck pain, no back pain, no hip pain, no abdominal pain, no upper extremity pain. Seen and evaluated by orthopedics and recommended for patient to undergo conservative management with splint in place. PT OT did work with him but patient was limited with mobility due to his pain. Pain regimen was switched from IV morphine and Lortab to Percocet every 6 hours. Pain did improve after this and plan was to send him home with some home health. Wheelchair, platform walker was provided for the patient. Rest of his hospital course is uneventful. Disposition: Disposition/Orders: D/C to Home w/ HH Activity: Activity: Resume previous activity Medications: Home Meds No Active Prescriptions or Reported Meds No Active Prescriptions or Reported Meds Total Time: Total Time: Total time spent was 35 minutes in preparing scripts, discharge planning with SWI and RN and preparing this discharge summary Patient seen and examined on day of discharge. No acute abnormal findings. Justicifation of Admission Dx: Justifications for Admission: Justification of Admission Dx: N/A GARRETT PAULINO MD Nov 17, 2020 15:44
[2020-11-17 16:07] VITALS: BP 144/73
--- NOTE | 2020-11-17 16:20 | NUR ---
Discharge instructions given to pt and parents. Answered questions and concerns. Verbalized understanding. Pt discharged home.
== END 2020-11-17 16:20 | disposition home health service (06) | DRG 563 ==
LOC: ER 16:35 → 4 SOUTHEST 17:00
PROVIDERS: ADMIT Internal Medicine; ATTEND Internal Medicine
DX: S82.402A Unspecified fracture of shaft of left fibula, initial encounter for closed fracture (principal); S82.202A Unspecified fracture of shaft of left tibia, initial encounter for closed fracture; S66.912A Strain of unspecified muscle, fascia and tendon at wrist and hand level, left hand, initial encounter; F17.210 Nicotine dependence, cigarettes, uncomplicated; Z20.822 Contact with and (suspected) exposure to COVID-19; G89.11 Acute pain due to trauma; W51.XXXA Accidental striking against or bumped into by another person, initial encounter; Y92.320 Baseball field as the place of occurrence of the external cause; Y93.64 Activity, baseball; Y99.8 Other external cause status
CPT/HCPCS: 29505; 36415; 73110; 73502; 73590; 80048; 80053; 83735; 84100; 85025; 86850; 86900; 86901; 87426; 96361; 96374; 96375; J1650; J2270; J2405; J3010; J7030; U0003; 97110-GP; 97116-GP; 97530-GO; 97530-GP; 97535-GO; 99285-25; G0378